=== PATIENT | female | born 2000 | race Two or more races ===

== ENCOUNTER 2023-06-30 17:48 | Emergency (ER) | payer MEDICAID ==
[~2023-06-30] VITALS: Ht 167.6 cm; Wt 66.0 kg
[~2023-06-30 17:48] MED LIST: RANI-366 PO; SERT50TA PO
[2023-06-30 18:45] VITALS: BP 141/91; PULSE 130; TEMP 102; O2SAT 99
[2023-06-30 22:39] LABS: URINE HCG NEGATIVE (NEG)
[2023-06-30 22:47] LABS: BILIRUBIN,URINE NEGATIVE (Neg); CLARITY,URINE CLEAR (Clear); COLOR,URINE YELLOW (Yellow); GLUCOSE, URINE NEGATIVE (Neg); KETONES,URINE NEGATIVE (Neg); LEUKOCYTE ESTERASE ,URINE NEGATIVE (Neg); NITRITES, URINE NEGATIVE (Neg); OCCULT BLOOD,URINE TRACE-INTACT (Neg); PROTEIN,URINE NEGATIVE (Neg); UROBILINOGEN,URINE 0.2 E.U/dL (0.2-1.0)
[2023-06-30 22:58] LABS: UA COLLECTION TYPE CLN CATCH MIDSTREAM
[2023-06-30 23:01] LABS: BACTERIA,URINE 2+ /HPF (Neg); MUCUS STRANDS FEW /LPF (Neg); SQUAMOUS EPITHELIAL CELL,UR FEW /LPF (FEW); WBC,URINE 0-4 /HPF (0-4)
[2023-06-30 23:48] VITALS: RESP 16
== END 2023-06-30 23:51 | disposition home or self-care (01) ==
LOC: ER 17:49
DX: B34.9 Viral infection, unspecified (principal); Z20.822 Contact with and (suspected) exposure to COVID-19; Z79.899 Other long term (current) drug therapy
CPT/HCPCS: 36415; 81001; 81025; 87502; 87503; 87811; 99283